=== PATIENT | female | born 1940 | race Caucasian/White ===

== ENCOUNTER 2021-01-14 10:20 | Emergency (ER) | payer MEDICARE, OTHER ==
[~2021-01-14 10:20] MED LIST: ASPIRIN CHEWABL81 MG PO; CARVEDILOL12.5 MG PO; COREG 6.25MG6.25 MG PO; COZAAR50 MG PO; PROTONIX 40MG T40 MG PO
[2021-01-14 11:11] LABS: BASOPHIL 1.5 % (0-2); EOSINOPHIL 2.4 % (0-7); HCT 43.3 % (37.0-47.0); HGB 14.2 g/dl (12.5-16.0); LYMPHOCYTE 27.2 % (15-48); MCHC 32.8 g/dL (32.0-36.0); MCV 85.4 fL (78.0-100.0); MONOCYTE 6.2 % (0-12); MPV 8.8 fL (6.0-9.5); NEUTROPHIL 61.7 % (41-80); NRBC 0; PLT 231 K/uL (150-400); RBC 5.07 M/uL (4.20-5.40); RDW 12.7 % (11.5-14.0); WBC 6.2 K/uL (4.0-10.5)
[2021-01-14 11:34] LABS: BILIRUBIN NEGATIVE (NEGATIVE); BLOOD TRACE-INTACT Ery/uL (NEGATIVE); CLARITY CLEAR (CLEAR); COLOR YELLOW (YELLOW); GLUCOSE (U) NORMAL (NORMAL); LEUKOCYTES NEGATIVE Leu/uL (NEGATIVE); NITRITE NEGATIVE (NEGATIVE); PROTEIN NEGATIVE (NEGATIVE); UROBILINOGEN 0.2 mg/dL (0.2-1.0)
[2021-01-14 11:36] LABS: ALBUMIN 3.5 g/dL (3.4-5.0); BILIRUBIN - TOTAL 0.5 mg/dL (0.2-1.0); BUN/CREAT RATIO (CALC) 15.2 RATIO; CREATININE 0.79 mg/dL (0.51-0.95); GLOBULIN (CALCULATION) 4.1 g/dL; POTASSIUM 4.6 mmol/L (3.5-5.1); TOTAL PROTEIN 7.6 g/dL (6.4-8.2)
[2021-01-14 11:37] LABS: INR 1.06 (0.9-1.2); PROTHROMBIN TIME 13.2 SECONDS (11.8-13.4); PTT 27.2 SECONDS (24.4-34.7)
[2021-01-14 11:44] LABS: BACTERIA TRACE; URINARY RBC RARE; URINARY WBC RARE
[2021-01-14] MEDS ORDERED: PROTONIX 40MG T40 MG PO (14:23)
[2021-01-14] MEDS ORDERED: ANUCORT-HC25 MG PR (14:25)
== END 2021-01-14 14:43 | disposition home or self-care (01) ==
LOC: FER 10:20
PROVIDERS: Internal Medicine
DX: K64.8 Other hemorrhoids (principal); K92.1 Melena; R19.7 Diarrhea, unspecified; I10 Essential (primary) hypertension; Z88.0 Allergy status to penicillin; Z91.012 Allergy to eggs
CPT/HCPCS: 36415; 80053; 81001; 82150; 83690; 85025; 85610; 85730; 86850; 86900; 86901; 93005; J7030; Q9967

== ENCOUNTER → 2021-04-02 | Day surgery (SDC) | payer MEDICARE, OTHER ==
[~2021-04-02] VITALS: Ht 149.9 cm; Wt 61.2 kg
[~2021-04-02] MED LIST changes: +ANUCORT-HC25 MG PR; +COREG25 MG PO; +DITROPAN5 MG PO
[2021-04-02 08:19] LABS: HCT 44.8 % (37.0-47.0); HGB 14.6 g/dl (12.5-16.0); MCH 28.1 pg (25.0-31.0); MCHC 32.6 g/dL (32.0-36.0); MCV 86.3 fL (78.0-100.0); MPV 8.6 fL (6.0-9.5); RBC 5.19 M/uL (4.20-5.40); RDW 13.1 % (11.5-14.0)
[2021-04-02 08:52] LABS: ALBUMIN 3.2 g/dL (3.4-5.0); BILIRUBIN - TOTAL 0.4 mg/dL (0.2-1.0); BUN/CREAT RATIO (CALC) 16.9 RATIO; CREATININE 0.83 mg/dL (0.51-0.95); GLOBULIN (CALCULATION) 3.6 g/dL; TOTAL PROTEIN 6.8 g/dL (6.4-8.2)
== END | disposition home or self-care (01) ==
LOC: FAS 07:30
PROVIDERS: Surgery
DX: D12.8 Benign neoplasm of rectum (principal); K57.30 Diverticulosis of large intestine without perforation or abscess without bleeding; I10 Essential (primary) hypertension; Z88.0 Allergy status to penicillin; Z88.1 Allergy status to other antibiotic agents; Z88.8 Allergy status to other drugs, medicaments and biological substances; Z79.82 Long term (current) use of aspirin; Z79.899 Other long term (current) drug therapy; Z90.49 Acquired absence of other specified parts of digestive tract
CPT/HCPCS: 36415; 80053; J2704; J7120